=== PATIENT | female | born 1995 | race Caucasian/White ===

== ENCOUNTER 2016-05-31 18:35 | Emergency (ER) | payer BC ==
[~2016-05-31] VITALS: Ht 162.6 cm; Wt 51.4 kg
[2016-05-31 18:38] VITALS: TEMP 36.9; Ht 162.6 cm; Wt 51.4 kg
[2016-05-31] MEDS ORDERED: SODIUM CHLORIDE 0.9% 1000ML 1,000 ML IV STA (18:49)
--- NOTE | 2016-05-31 19:00 | DIAGNOSTIC IMAGING REPORT ---
CHEST ONE VIEW PORTABLE CLINICAL HISTORY: Altered mental status. Weakness. COMPARISON STUDY: No previous studies for comparison. FINDINGS: The cardiac and mediastinal contours are normal. There is no evidence of focal pulmonary consolidation. There is no evidence of failure. No pleural effusions are visualized.[ IMPRESSION: No active disease in the chest. Electronically signed by: Shakeel Khan M.D. 05/31/2016 6:58 PM Dictated Date/Time: 05/31/2016 6:57 PM
[2016-05-31] MEDS ORDERED: CHOLCAP5 PO (19:15)
[2016-05-31] MEDS ORDERED: PROB1TAB16 PO (19:15)
[2016-05-31] MEDS ORDERED: MULT-506 PO (19:15)
[2016-05-31 19:21] LABS: BASO % 0.3 %; BASO ABS # 0.02 K/uL (0-0.2); COMPLETE YES; EOS % 0.5 %; HEMATOCRIT 38.9 % (37-47); IG% 0.4 %; LYMPH % 33.8 %; LYMPH ABS # 2.48 K/uL (1.2-3.4); MEAN CELL VOLUME 83.7 fL (80-100); MEAN CORPUSCULAR HEMOGLOBIN 29.5 pg (25-34); MEAN CORPUSCULAR HGB CONC 35.2 g/dl (32-36); MEAN PLATELET VOLUME 10.4 fL (7.4-10.4); MONO % 8.2 %; NEUT % 56.8 %; PLATELET COUNT 241 K/uL (130-400); RED BLOOD COUNT 4.65 M/uL (4.2-5.4); WHITE BLOOD COUNT 7.34 K/uL (4.8-10.8)
--- NOTE | 2016-05-31 19:33 | DIAGNOSTIC IMAGING REPORT ---
CT HEAD WITHOUT CONTRAST (CT) CLINICAL HISTORY: Acute change in mental status. Lightheadedness. COMPARISON STUDY: No previous studies for comparison. TECHNIQUE: Axial CT of the brain is performed from the vertex to the skull base. IV contrast was not administered for this examination. CT DOSE: 614.27 mGy.cm FINDINGS: No intra or extra-axial mass lesions are visualized. There is no CT evidence of acute cortical infarction. There is no evidence of midline shift. There is no acute hemorrhage. No calvarial fractures are visualized. There is no evidence of pathologic ventricular dilatation. There is partial opacification of the right sphenoid. IMPRESSION: Partial opacification of the right sphenoid sinus. Otherwise normal noncontrast head CT. Electronically signed by: Shakeel Khan M.D. 05/31/2016 7:31 PM Dictated Date/Time: 05/31/2016 7:30 PM
[2016-05-31 19:38] LABS: CREATININE 0.85 mg/dl (0.60-1.20); POTASSIUM 3.5 mmol/L (3.5-5.1)
[2016-05-31 19:49] LABS: THYROID STIMULATING HORMONE 0.998 uIu/ml (0.300-4.500)
[2016-05-31 20:39] LABS: URINE APPEARANCE CLEAR (CLEAR); URINE BILIRUBIN NEG (NEG); URINE COLOR YELLOW; URINE EPITHELIAL CELL AUTO >30 /lpf (0-5); URINE NITRITE NEG (NEG); URINE PH >= 9.0 (4.5-7.5); URINE SPECIFIC GRAVITY 1.021 (1.000-1.030); UROBILINOGEN NEG (NEG); ZZUR CULT IF INDIC CLEAN CATCH NO
[2016-05-31 20:41] LABS: MANUAL MICROSCOPIC REQUIRED? NO; REVIEW REQ? NO
[2016-05-31 20:43] LABS: SULFASALICYLIC ACID NEG (NEG)
[2016-05-31 20:55] VITALS: PULSE 70
[2016-05-31 20:58] LABS: BENZODIAZEPINE, URINE NEG (NEG); COCAINE,URINE NEG (NEG); PHENCYCLIDINE, URINE NEG (NEG)
--- NOTE | 2016-05-31 21:07 | EMERGENCY ROOM VISIT NOTE ---
History Report prepared by Ravi: Angelique Perez Under the Supervision of: Dr. Jarrett Osullivan D.O. 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 The patient states that she was lying in bed today and started having tingling of her right side of her face along with lightheadedness. The patient states that she then was having trouble controlling and moving her facial muscles and she states that it was hard to move her face. The patent states that she went out drinking last night and states she is unable to remember what happened due to the large amount of alcohol she drank. She states she did drink a lot last night but is unaware if anyone might have put anything in her drink. She states that she also must have fallen down last night when she was walking in heels and has a bruise on her left foot. The patient states that she is also worried that when she feel that she might have hit her head causing her symptoms today. The patient states that she did wake up with a hangover and feeling weak. The patient states that she is feeling more alert now than when her symptoms started. The patient denies any sob, nausea, or tingling in the hands or feet. The patient states that her last menstrual period was 2 weeks ago and that she does not take any medication s regularly. She states that she was on a few antibiotics about a month ago for a recurrent cough but that her cough has resolved. 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 Patient denies tingling in hands or feet. Review of Systems See HPI for pertinent positives & negatives. A total of 10 systems reviewed and were otherwise negative. Past Medical & Surgical Medical Problems: (1) No Known Active Medical Problems Family History Patient reports no known family medical history. Social History Smoking Status: Never Smoker Marital Status: single Housing Status: lives with roommate Occupation Status: [employer] student Current/Historical Medications Scheduled Cholecalciferol (Vitamin D3), 5,000 INTER.UNIT PO DAILY Multivitamin (Multivitamin), 1 TAB PO DAILY Probiotic Product (Probiotic), 2 TABS PO DAILY Allergies Coded Allergies: No Known Allergies (Unverified , 11/24/15) Physical Exam Vital Signs Date Time Temp Pulse Resp B/P Pulse Ox O2 Delivery O2 Flow Rate FiO2 05/31/16 20:55 70 17 107/67 98 05/31/16 18:38 36.9 68 16 110/56 97 Room Air Physical Exam CONSTITUTIONAL/VITAL SIGNS: Reviewed / noted above. GENERAL: Non-toxic in appearance. INTEGUMENTARY: Warm, dry, and [place]. HEAD: Normocephalic. EYES: without scleral icterus or trauma. ENT/OROPHARYNX: clear and moist. LYMPHADENOPATHY/NECK: Is supple without lymphadenopathy or meningismus. RESPIRATORY: Lungs clear and equal. CARDIOVASCULAR: Regular rate and rhythm. GI/ABDOMEN: Soft and nontender. No organomegaly or pulsatile mass. No rebound or guarding. Normal bowel sounds. EXTREMITIES: Warm and well perfused. BACK: No CVA tenderness. NEUROLOGICAL: Intact without focal deficits. PSYCHIATRIC: normal affect. MUSCULOSKELETAL: Normally developed with good muscle tone. Medical Decision & Procedures ER Provider Diagnostic Interpretation: X ray results and stated below per my interpretation and radiology interpretation. CHEST ONE VIEW PORTABLE CLINICAL HISTORY: Altered mental status. Weakness. COMPARISON STUDY: No previous studies for comparison. FINDINGS: The cardiac and mediastinal contours are normal. There is no evidence of focal pulmonary consolidation. There is no evidence of failure. No pleural effusions are visualized.[ IMPRESSION: No active disease in the chest. Electronically signed by: Shakeel Khan M.D. 05/31/2016 6:58 PM Dictated Date/Time: 05/31/2016 6:[address] results as stated below per my review and radiologist interpretation: CT HEAD WITHOUT CONTRAST (CT) CLINICAL HISTORY: Acute change in mental status. Lightheadedness. COMPARISON STUDY: No previous studies for comparison. TECHNIQUE: Axial CT of the brain is performed from the vertex to the skull base. IV contrast was not administered for this examination. CT DOSE: 614.27 mGy.cm FINDINGS: No intra or extra-axial mass lesions are visualized. There is no CT evidence of acute cortical infarction. There is no evidence of midline shift. There is no acute hemorrhage. No calvarial fractures are visualized. There is no evidence of pathologic ventricular dilatation. There is partial opacification of the right sphenoid. IMPRESSION: Partial opacification of the right sphenoid sinus. Otherwise normal noncontrast head CT. Electronically signed by: Shakeel Khan M.D. 05/31/2016 7:31 PM Dictated Date/Time: 05/31/2016 7:30 PM Laboratory Results 05/31/16 19:10 Red Blood Count 4.65, Mean Corpuscular Volume 83.7, Mean Corpuscular Hemoglobin 29.5, Mean Corpuscular Hemoglobin Concent 35.2, Mean Platelet Volume 10.4, Neutrophils (%) (Auto) 56.8, Lymphocytes (%) (Auto) 33.8, Monocytes (%) (Auto) 8.2, Eosinophils (%) (Auto) 0.5, Basophils (%) (Auto) 0.3, Neutrophils # (Auto) 4.17, Lymphocytes # (Auto) 2.48, Monocytes # (Auto) 0.60, Eosinophils # (Auto) 0.04, Basophils # (Auto) 0.02 05/31/16 19:10 Test 05/31/16 19:10 05/31/16 20:05 White Blood Count 7.34 K/uL (4.8-10.8) Red Blood Count 4.65 M/uL (4.2-5.4) Hemoglobin 13.7 g/dL (12.0-16.0) Hematocrit 38.9 % (37-47) Mean Corpuscular Volume 83.7 fL (80-100) Mean Corpuscular Hemoglobin 29.5 pg (25-34) Mean Corpuscular Hemoglobin Concent 35.2 g/dl (32-36) Platelet Count 241 K/uL (130-400) Mean Platelet Volume 10.4 fL (7.4-10.4) Neutrophils (%) (Auto) 56.8 % Lymphocytes (%) (Auto) 33.8 % Monocytes (%) (Auto) 8.2 % Eosinophils (%) (Auto) 0.5 % Basophils (%) (Auto) 0.3 % Neutrophils # (Auto) 4.17 K/uL (1.4-6.5) Lymphocytes # (Auto) 2.48 K/uL (1.2-3.4) Monocytes # (Auto) 0.60 K/uL (0.11-0.59) Eosinophils # (Auto) 0.04 K/uL (0-0.5) Basophils # (Auto) 0.02 K/uL (0-0.2) RDW Standard Deviation 39.2 fL (36.4-46.3) RDW Coefficient of Variation 13.0 % (11.5-14.5) Immature Granulocyte % (Auto) 0.4 % Immature Granulocyte # (Auto) 0.03 K/uL (0.00-0.02) Anion Gap 8.0 mmol/L (3-11) Est Creatinine Clear Calc Drug Dose 86.4 ml/min Estimated GFR () 115.1 Estimated GFR (Non- 99.3 BUN/Creatinine Ratio 18.0 (10-20) Calcium Level 9.0 mg/dl (8.5-10.1) Total Bilirubin 0.4 mg/dl (0.2-1) Direct Bilirubin 0.1 mg/dl (0-0.2) Aspartate Amino Transf (AST/SGOT) 12 U/L (15-37) Alanine Aminotransferase (ALT/SGPT) 22 U/L (12-78) Alkaline Phosphatase 63 U/L (45-117) Total Protein 7.4 gm/dl (6.4-8.2) Albumin 4.1 gm/dl (3.4-5.0) Thyroid Stimulating Hormone (TSH) 0.998 uIu/ml (0.300-4.500) Urine Color YELLOW Urine Appearance CLEAR (CLEAR) Urine pH >= 9.0 (4.5-7.5) Urine Specific [place] 1.021 (1.000-1.030) Urine Protein NEG (NEG) Urine Glucose (UA) NEG (NEG) Urine Ketones NEG (NEG) Urine Occult Blood NEG (NEG) Urine Nitrite NEG (NEG) Urine Bilirubin NEG (NEG) Urine Urobilinogen NEG (NEG) Urine Leukocyte Esterase NEG (NEG) Urine WBC (Auto) 1-5 /hpf (0-5) Urine RBC (Auto) 0-4 /hpf (0-4) Urine Hyaline Casts (Auto) 1-5 /lpf (0-5) Urine Epithelial Cells (Auto) >30 /lpf (0-5) Urine Bacteria (Auto) NEG (NEG) Urine Test NEG (NEG) Urine Opiates Screen NEG (NEG) Urine Methadone, Qualitative NEG (NEG) Urine Barbiturates NEG (NEG) Urine Phencyclidine (PCP) Level NEG (NEG) Ur Amphetamine/Methamphetamine NEG (NEG) MDMA (Ecstasy) Screen NEG (NEG) Urine Benzodiazepines Screen NEG (NEG) Urine Cocaine Metabolite NEG (NEG) Urine Marijuana (THC) NEG (NEG) Laboratory results as stated above per my review. Medications Administered Medications (Trade) Dose Ordered Sig/Raegan Route Start Time Stop Time Status Last Admin Dose Admin Sodium Chloride (Nss 1000ml) 1,000 ml @ 999 mls/hr Q1H1M STAT IV 05/31/16 18:49 05/31/16 19:52 DC 05/31/16 19:19 999 MLS/HR ECG Indication: weakness (tingling of face) Rate (beats per minute): 76 Rhythm: sinus rhythm Findings: PAC, no ectopy ED Course 1842: Previous medical records were reviewed. The patient was evaluated in room B8. A complete history and physical examination was performed. 1848: Ordered Sodium Chloride 1,000 ml @ 999 mls/hr IV. 2107: On reevaluation, the patient is resting comfortably. I discussed the results and findings with the patient. She verbalized agreement of the treatment plan. The patient was discharged home. Medical Decision Differential diagnosis: Etiologies such as metabolic, infection, hypo/hyperglycemia, electrolyte abnormalities, cardiac sources, intracerebral event, toxicologic, neurologic, as well as others were entertained. This is a 20-year-old female who presents to the ED with a chief complaint of lightheadedness. The patient states that around 45 minutes and go prior to her arrival here, she developed some left face tingling/numbness and had difficulty controlling her mouth. She states that she is talking on the phone at the time. She states that she felt faint, weird and nervous. The patient came in for evaluation of this. She states that she was drinking a lot of alcohol last night. She does not think someone slipped her something. She did receive a contusion to the dorsal aspect of her left foot but does not recall how that occurred. She was wearing high heels last night. The patient's vital signs are normal. Her neurologic and physical exam was relatively unremarkable. She seems slightly anxious and has a contusion to the left dorsal foot. There is no obvious fractures. No pain with axial loading of the tarsals or digits. An EKG shows a sinus rhythm. CT scan of the brain does not show acute disease. A chest x-ray was negative for acute disease. CBC is normal. Complete metabolic panel and TSH are normal. Urine tox and urinalysis was negative. was negative. The patient was told the results. She is felt to be stable for discharge. Impression Primary Impression: Dizziness Additional Impressions: Facial paresthesia Anxiety Scribe Attestation The scribe's documentation has been prepared under my direction and personally reviewed by me in its entirety. I confirm that the note above accurately reflects all work, treatment, procedures, and medical decision making performed by me. Departure Information Dispostion Home / Self-Care Referrals No Doctor, Assigned (PCP) Forms HOME CARE DOCUMENTATION FORM, IMPORTANT VISIT INFORMATION, WORK / SCHOOL INSTRUCTIONS Patient Instructions My [facility] [place] [employer] Additional Instructions Avoid alcohol consumption. Follow-up with your doctor for further care and evaluation in 1-2 days. Return to the emergency department for worsening or new symptoms or any concerns. You have been examined and treated today on an emergency basis only. This is not a substitute for, or an effort to provide, complete comprehensive medical care. It is impossible to recognize and treat all injuries or illnesses in a single emergency department visit. It is therefore important that you follow up closely with your doctor. Call as soon as possible for an appointment. Problem Qualifiers
[2016-05-31 21:34] VITALS: BP 114/60; O2SAT 98
== END 2016-05-31 21:35 | disposition home or self-care (01) ==
LOC: C.EDB 18:37
DX: R42 Dizziness and giddiness (principal); R20.2 Paresthesia of skin; F41.9 Anxiety disorder, unspecified; S90.32XA Contusion of left foot, initial encounter; X58.XXXA Exposure to other specified factors, initial encounter